=== PATIENT | male | born 1950 | race Caucasian/White ===

== ENCOUNTER 2017-04-12 08:39 | Day surgery (SDC) | payer MEDICARE ==
[~2017-04-12] VITALS: Ht 165.1 cm; Wt 82.6 kg
[~2017-04-12 08:39] MED LIST: ASPI325B; ASPI81CH PO; ATEN25; ATEN25 PO; CLOP75; COLE625 PO; CRUTCH2 USE; DOXY100T53 PO; EZET10 PO; FOLI1; GABA300 PO; HYDCHL25; LISI10 PO; LISI20 PO; LISI5 PO; METO100ER PO; METTREX2.5 PO; NITR.3SL SL; NITR.4SL SL; OMEPRAZOLE MAGN20 MG PO; OXYACE5T PO; PRED20 PO; Prilosec Otc20 MG PO; Prinivil10 MG PO; RANI150; RXOXYACE PO; [UNRECOGNIZED DRUG - REMARK]; [UNRECOGNIZED DRUG - REMARK]
[2017-11-28] MEDS ORDERED: GABA600 PO (20:48)
[2017-11-28] MEDS ORDERED: ATOR40TA PO (20:49)
[2017-11-29] MEDS ORDERED: LORA1 PO (12:37)
[2017-11-29] MEDS ORDERED: FOLI1 PO (12:37)
[2017-11-29] MEDS ORDERED: THIA100 PO (12:38)
== END 2017-04-12 12:26 | disposition home or self-care (01) ==
LOC: ORSCSDS 08:39
PROVIDERS: Urology
PROC: 0VB60ZZ Excision of Right Tunica Vaginalis, Open Approach (ICD-10-PCS; principal; 2017-04-12 11:00)
PROC: 0VB70ZZ Excision of Left Tunica Vaginalis, Open Approach (ICD-10-PCS; principal; 2017-04-12 11:00)
DX: N43.3 Hydrocele, unspecified (principal); I10 Essential (primary) hypertension; E78.5 Hyperlipidemia, unspecified; G47.33 Obstructive sleep apnea (adult) (pediatric); I25.2 Old myocardial infarction; Z79.82 Long term (current) use of aspirin; Z79.899 Other long term (current) drug therapy
CPT/HCPCS: J0690; J1100; J2250; J2405; J3010; J7120

== ENCOUNTER 2019-04-17 07:54 | Day surgery (SDC) | payer MEDICARE ==
[~2019-04-17] VITALS: Ht 162.6 cm; Wt 81.8 kg
[~2019-04-17 07:54] MED LIST changes: +ATOR40TA PO; +Aspirin EC81 MG PO; +ESCITALOPRAM OX10 MG PO; +FOLI1 PO; +GABA600 PO; +LORA1 PO; +Revatio20 MG PO; +THIA100 PO; +ZESTORETIC 20-251 EA PO
== END 2019-04-17 10:36 | disposition home or self-care (01) ==
LOC: ORSCSDS 07:54
PROVIDERS: Internal Medicine Gastroenterology
PROC: 0DBH8ZX Excision of Cecum, Via Natural or Artificial Opening Endoscopic, Diagnostic (ICD-10-PCS; principal; 2019-04-17 09:30)
PROC: 0DBL8ZX Excision of Transverse Colon, Via Natural or Artificial Opening Endoscopic, Diagnostic (ICD-10-PCS; principal; 2019-04-17 09:30)
PROC: 0DB78ZX Excision of Stomach, Pylorus, Via Natural or Artificial Opening Endoscopic, Diagnostic (ICD-10-PCS; principal; 2019-04-17 09:30)
PROC: 0DBN8ZX Excision of Sigmoid Colon, Via Natural or Artificial Opening Endoscopic, Diagnostic (ICD-10-PCS; principal; 2019-04-17 09:30)
PROC: 0DBM8ZX Excision of Descending Colon, Via Natural or Artificial Opening Endoscopic, Diagnostic (ICD-10-PCS; principal; 2019-04-17 09:30)
PROC: 0DBK8ZX Excision of Ascending Colon, Via Natural or Artificial Opening Endoscopic, Diagnostic (ICD-10-PCS; principal; 2019-04-17 09:30)
DX: R19.5 Other fecal abnormalities (principal); K29.70 Gastritis, unspecified, without bleeding; K31.7 Polyp of stomach and duodenum; B96.81 Helicobacter pylori [H. pylori] as the cause of diseases classified elsewhere; K44.9 Diaphragmatic hernia without obstruction or gangrene; D12.0 Benign neoplasm of cecum; D12.2 Benign neoplasm of ascending colon; D12.3 Benign neoplasm of transverse colon; K63.5 Polyp of colon; I10 Essential (primary) hypertension; I25.10 Atherosclerotic heart disease of native coronary artery without angina pectoris; I25.2 Old myocardial infarction; G47.33 Obstructive sleep apnea (adult) (pediatric); K21.9 Gastro-esophageal reflux disease without esophagitis; Z79.899 Other long term (current) drug therapy; Z79.82 Long term (current) use of aspirin
CPT/HCPCS: 88305; 88341; 88342; J2704; J7120

== ENCOUNTER → 2019-06-10 | Outpatient (CLI) | payer MEDICARE | END | disposition home or self-care (01) | LOC: LAB SHORT 23:00 → LAB 23:00 → LAB FUT 05-16 17:15 | DX: K29.60 Other gastritis without bleeding (principal) | CPT/HCPCS: 87338 ==

== ENCOUNTER 2020-07-18 12:18 | Emergency (ER) | payer MEDICARE ==
[~2020-07-18] VITALS: Ht 165.1 cm; Wt 82.5 kg
[2020-07-18 13:30] LABS: BASOPHILS ABSOLUTE AUTO 0.02 K/mm3 (0.00-0.23); BASOPHILS PERCENT AUTO 0 % (0-2); EOSINOPHILS PERCENT AUTO 0 % (0-6); Hematocrit 40.3 % (37.0-53.0); Hemoglobin 13.8 g/dL (13.5-17.5); IMMATURE GRAN ABSOLUTE AUTO 0.07 K/mm3 (0.00-0.10); IMMATURE GRAN PERCENT AUTO 1 % (0-1); LYMPHOCYTES ABSOLUTE AUTO 0.46 K/mm3 (0.84-5.20); LYMPHOCYTES PERCENT AUTO 4 % (21-46); MONOCYTES ABSOLUTE AUTO 0.52 K/mm3 (0.16-1.47); MONOCYTES PERCENT AUTO 5 % (4-13); Mean Corpuscular HGB 33.8 pg (26.0-34.0); Mean Corpuscular HGB Conc 34.2 g/dL (31.5-36.5); Mean Corpuscular Volume 99 fL (80-100); NEUTROPHILS ABSOLUTE AUTO 10.17 K/mm3 (1.96-9.15); NEUTROPHILS PERCENT AUTO 91 % (41-73); Platelet Count 140 K/mm3 (150-400); RDW Coefficient Variation 13.2 % (11.7-14.2); RDW Standard Deviation 47.6 fL (35.1-46.3); Red Blood Cell Count 4.08 M/mm3 (4.30-5.90); White Blood Cell Count 11.24 K/mm3 (4.00-11.30)
[2020-07-18 13:41] LABS: Alanine Aminotransfer (ALT/SGP 18 U/L (12-78); Albumin, Blood 3.4 g/dL (3.4-5.0); Albumin/Globulin Ratio 1.1 (0.8-1.8); Alk Phos 77 U/L (50-136); Anion Gap 4 mmol/L (6-16); Aspartate Aminotrans (AST/SGOT 17 U/L (12-37); Bilirubin, Total 0.8 mg/dL (0.1-1.0); Blood Urea Nitrogen 11 mg/dL (8-24); Bun/Creatinine Ratio 8.9 (12.0-20.0); CO2, Blood 29 mmol/L (21-32); Chloride, Blood 104 mmol/L (98-108); Creatinine, Blood 1.23 mg/dL (0.60-1.20); Globulin, Blood 3.1 g/dL (2.2-4.0); Glomerular Filtration Rate >60 (60-); Glucose, Blood 120 mg/dL (70-99); Potassium, Blood 3.5 mmol/L (3.5-5.5); Sodium, Blood 137 mmol/L (136-145); Total Protein, Blood 6.5 g/dL (6.4-8.2); Troponin I <0.015 ng/mL (0.000-0.040)
== END 2020-07-18 16:19 | disposition home or self-care (01) ==
LOC: ER 12:18
PROVIDERS: Emergency Medicine
DX: R55 Syncope and collapse (principal); R19.7 Diarrhea, unspecified; I10 Essential (primary) hypertension; E78.5 Hyperlipidemia, unspecified; F17.220 Nicotine dependence, chewing tobacco, uncomplicated; Z79.82 Long term (current) use of aspirin; Z79.899 Other long term (current) drug therapy
CPT/HCPCS: 71045; 74019; 80053; 83690; 84484; 85025; 93005; 93010; 99284-25

== ENCOUNTER 2021-02-08 09:51 | Observation (INO) | payer MEDICARE ==
[~2021-02-08] VITALS: Ht 165.1 cm; Wt 81.9 kg
[~2021-02-08 09:51] MED LIST changes: -Aspirin EC81 MG PO; -ESCITALOPRAM OX10 MG PO; -ZESTORETIC 20-251 EA PO
[2021-02-08 10:18] LABS: BASOPHILS ABSOLUTE AUTO 0.03 K/mm3 (0.00-0.23); BASOPHILS PERCENT AUTO 0 % (0-2); EOSINOPHILS ABSOLUTE AUTO 0.17 K/mm3 (0.00-0.68); EOSINOPHILS PERCENT AUTO 3 % (0-6); Hematocrit 42.6 % (37.0-53.0); Hemoglobin 14.6 g/dL (13.5-17.5); IMMATURE GRAN ABSOLUTE AUTO 0.02 K/mm3 (0.00-0.10); IMMATURE GRAN PERCENT AUTO 0 % (0-1); LYMPHOCYTES ABSOLUTE AUTO 1.94 K/mm3 (0.84-5.20); LYMPHOCYTES PERCENT AUTO 28 % (21-46); MONOCYTES ABSOLUTE AUTO 0.47 K/mm3 (0.16-1.47); MONOCYTES PERCENT AUTO 7 % (4-13); Mean Corpuscular HGB 33.9 pg (26.0-34.0); Mean Corpuscular HGB Conc 34.3 g/dL (31.5-36.5); Mean Corpuscular Volume 99 fL (80-100); Mean Platelet Volume 10.3 fL (9.1-12.4); NEUTROPHILS ABSOLUTE AUTO 4.27 K/mm3 (1.96-9.15); NEUTROPHILS PERCENT AUTO 62 % (41-73); Platelet Count 181 K/mm3 (150-400); RDW Coefficient Variation 13.1 % (11.7-14.2); RDW Standard Deviation 47.8 fL (35.1-46.3); Red Blood Cell Count 4.31 M/mm3 (4.30-5.90)
[2021-02-08 10:46] LABS: Alanine Aminotransfer (ALT/SGP 24 U/L (12-78); Albumin, Blood 3.6 g/dL (3.4-5.0); Alk Phos 82 U/L (50-136); Anion Gap 4 mmol/L (6-16); Aspartate Aminotrans (AST/SGOT 18 U/L (12-37); Bilirubin, Total 0.6 mg/dL (0.1-1.0); Blood Urea Nitrogen 17 mg/dL (8-24); CO2, Blood 30 mmol/L (21-32); Calcium, Blood 8.7 mg/dL (8.5-10.1); Chloride, Blood 105 mmol/L (98-108); Creatinine, Blood 1.21 mg/dL (0.60-1.20); Globulin, Blood 3.5 g/dL (2.2-4.0); Glomerular Filtration Rate 59 (60-); Glucose, Blood 102 mg/dL (70-99); Potassium, Blood 3.8 mmol/L (3.5-5.5); Sodium, Blood 139 mmol/L (136-145); Total Protein, Blood 7.1 g/dL (6.4-8.2); Troponin I <0.015 ng/mL (0.000-0.040)
[2021-02-08] MEDS ORDERED: ESCITALOPRAM OX10 MG PO (12:42)
[2021-02-08] MEDS ORDERED: Lisinopril-Hct1 EAC4 PO (12:42)
[2021-02-08] MEDS ORDERED: ATOR40TA PO (12:43)
[2021-02-08] MEDS ORDERED: OMEPRAZOLE MAGN20 M1 PO (12:43)
[2021-02-08] MEDS ORDERED: METHOTREXATE2.5 M6 PO (12:44)
[2021-02-08] MEDS ORDERED: NEURONTIN600 MG PO (12:44)
[2021-02-08] MEDS ORDERED: Aspirin EC81 MG PO (12:45)
[2021-02-08 12:58] LABS: SARS-Cov-2 (COVID-19) PCR, MMC NEGATIVE (NEGATIVE)
--- NOTE | 2021-02-08 17:10 | NUR ---
RECIEVED REPORT FROM CONCHITA CREWS RN AT 1704. PATIENT TO TRANSFER TO ROOM 302.
[2021-02-09 05:18] LABS: BASOPHILS ABSOLUTE AUTO 0.02 K/mm3 (0.00-0.23); BASOPHILS PERCENT AUTO 0 % (0-2); EOSINOPHILS ABSOLUTE AUTO 0.15 K/mm3 (0.00-0.68); EOSINOPHILS PERCENT AUTO 2 % (0-6); Hematocrit 40.2 % (37.0-53.0); Hemoglobin 13.4 g/dL (13.5-17.5); IMMATURE GRAN ABSOLUTE AUTO 0.02 K/mm3 (0.00-0.10); IMMATURE GRAN PERCENT AUTO 0 % (0-1); LYMPHOCYTES ABSOLUTE AUTO 1.97 K/mm3 (0.84-5.20); LYMPHOCYTES PERCENT AUTO 29 % (21-46); MONOCYTES ABSOLUTE AUTO 0.39 K/mm3 (0.16-1.47); MONOCYTES PERCENT AUTO 6 % (4-13); Mean Corpuscular HGB 33.2 pg (26.0-34.0); Mean Corpuscular HGB Conc 33.3 g/dL (31.5-36.5); Mean Corpuscular Volume 100 fL (80-100); NEUTROPHILS ABSOLUTE AUTO 4.19 K/mm3 (1.96-9.15); NEUTROPHILS PERCENT AUTO 62 % (41-73); Platelet Count 150 K/mm3 (150-400); RDW Standard Deviation 47.6 fL (35.1-46.3); Red Blood Cell Count 4.04 M/mm3 (4.30-5.90); White Blood Cell Count 6.74 K/mm3 (4.00-11.30)
[2021-02-09 06:02] LABS: Alanine Aminotransfer (ALT/SGP 22 U/L (12-78); Albumin, Blood 3.2 g/dL (3.4-5.0); Albumin/Globulin Ratio 1.1 (0.8-1.8); Alk Phos 70 U/L (50-136); Anion Gap 6 mmol/L (6-16); Aspartate Aminotrans (AST/SGOT 14 U/L (12-37); Bilirubin, Total 0.5 mg/dL (0.1-1.0); Blood Urea Nitrogen 17 mg/dL (8-24); Bun/Creatinine Ratio 14.3 (12.0-20.0); CO2, Blood 29 mmol/L (21-32); Calcium, Blood 8.5 mg/dL (8.5-10.1); Chloride, Blood 107 mmol/L (98-108); Creatinine, Blood 1.19 mg/dL (0.60-1.20); Globulin, Blood 2.9 g/dL (2.2-4.0); Glomerular Filtration Rate >60 (60-); Glucose, Blood 117 mg/dL (70-99); Potassium, Blood 3.8 mmol/L (3.5-5.5); Sodium, Blood 142 mmol/L (136-145); Total Protein, Blood 6.1 g/dL (6.4-8.2)
--- NOTE | 2021-02-09 16:11 | NUR ---
PATIENT WAS TAKEN DOWN TO THE CENTRAL PROCESSING TECHNICIAN AT 1550. HE WILL NOT BE RETURNING TO THIS FLOOR S/P PROCEEDURE.
--- NOTE | 2021-02-09 16:56 | NUR ---
FACE TO face report received from Teresita at this time. Pt is in the heart center, undergoing angiogram at this time.
--- NOTE | 2021-02-09 16:59 | NUR ---
FACE TO FACE REPORT GIVEN TO GRICELDA LIVE IN [facility], AT 8302.
--- NOTE | 2021-02-09 18:40 | NUR ---
Pt came from the heart center, TR band in plae over the right wrist. Distal pulse bounding, fingers are pink, warm and pt denies any pain/numbness or tingling. Cap refill is brink.
--- NOTE | 2021-02-09 18:53 | NUR ---
Right wrist site is still without bleeding, bruising, swelling nor signs of hematoma. TR band still in place. Pt denies any discomfort. He is alert and oriented, but states that he still feels a little "goofy" after the medications.
--- NOTE | 2021-02-09 22:33 | NUR ---
CARE ASSUMPTION PT A&OX4. SP02>92% ON RA. TELEMETRY READS NSR, HR 70'S. PT HAS R RADIAL SITE. TR BAND FULLY INFLATED UPON CARE ASSUMPTION. NO BRUISING/BLEEDING/HEMATOMA. SITE SOFT, PULSES PALPABLE. ARM BOARD IN PLACE. FLUIDS INFUSING PER EMAR. CALL LIGHT IN REACH.
--- NOTE | 2021-02-10 02:39 | NUR ---
TR BAND OFF AT THIS TIME. NO BRUISING BLEEDING NO HEMATOMA. OPSITE PLACED. ARM BOARD IN PLACE AT THIS TIME.
[2021-02-10 04:40] LABS: BASOPHILS ABSOLUTE AUTO 0.03 K/mm3 (0.00-0.23); BASOPHILS PERCENT AUTO 0 % (0-2); EOSINOPHILS ABSOLUTE AUTO 0.17 K/mm3 (0.00-0.68); EOSINOPHILS PERCENT AUTO 2 % (0-6); Hemoglobin 12.7 g/dL (13.5-17.5); IMMATURE GRAN ABSOLUTE AUTO 0.02 K/mm3 (0.00-0.10); IMMATURE GRAN PERCENT AUTO 0 % (0-1); LYMPHOCYTES ABSOLUTE AUTO 1.77 K/mm3 (0.84-5.20); LYMPHOCYTES PERCENT AUTO 24 % (21-46); MONOCYTES PERCENT AUTO 7 % (4-13); Mean Corpuscular HGB 33.6 pg (26.0-34.0); Mean Corpuscular HGB Conc 34.3 g/dL (31.5-36.5); Mean Corpuscular Volume 98 fL (80-100); NEUTROPHILS ABSOLUTE AUTO 5.02 K/mm3 (1.96-9.15); NEUTROPHILS PERCENT AUTO 67 % (41-73); Platelet Count 135 K/mm3 (150-400); RDW Coefficient Variation 12.9 % (11.7-14.2); Red Blood Cell Count 3.78 M/mm3 (4.30-5.90); White Blood Cell Count 7.51 K/mm3 (4.00-11.30)
[2021-02-10 05:14] LABS: Bun/Creatinine Ratio 13.5 (12.0-20.0); Calcium, Blood 8.5 mg/dL (8.5-10.1); Creatinine, Blood 1.26 mg/dL (0.60-1.20); Potassium, Blood 3.6 mmol/L (3.5-5.5)
--- NOTE | 2021-02-10 05:32 | NUR ---
SHIFT SUMMARY PT A&OX4. PLEASANT. SP02>92% ON RA. TELEMETRY READS NSR, HR 70'S. PT DENIES CP/PRESSURE. PT HAS R RADIAL SITE. TR BAND DEFLATED AND REMOVED THIS SHIFT. SITE SOFT, NO BRUISING, NO BLEEDING, NO HEMATOMA. ARM BOARD IN PLACE. PT USED URINAL AT BEDSIDE. NS INFUSED PER EMAR. CALL LIGHT IN REACH.
[2021-02-10 09:56] LABS: CHOL/HDL RATIO 2.5; Cholesterol 144 mg/dL (50-200); HDL Cholesterol 58 mg/dL (>39); Low Density Lipoprotein Chol 56 mg/dL (0-110); Triglycerides 148 mg/dL (30-160); Very Low Density Lipoprot Chol 29 mg/dL (6-32)
--- NOTE | 2021-02-10 11:01 | NUR ---
02/09/21 discharge delayed due to use of restraints. There is a 48 hour waiting period. Patient will more than likely discharge on 02/11/21 to [facility].
[2021-02-10] MEDS ORDERED: Isosorbide Mono30 MG PO (11:10)
[2021-02-10] MEDS ORDERED: Nicoderm Cq1 EACH TOP (11:11)
[2021-02-10] MEDS ORDERED: METO25ER PO (11:11)
[2021-02-10] MEDS ORDERED: Nitrostat0.3 MG SL (11:12)
--- NOTE | 2021-02-11 07:56 | NUR ---
Per Dr. Wise discharge appropriate (discharged on 02/10/21). Spoke with . Cyril Yanes and he is aware of discharge and does not oppose. Patient has his own transportation and is driving home to his residence. Patient is ambulatory with no DME needs at this time. Patient has a scheduled follow up appointment with Dr. Hwoell on 02/15/21 at 1520 and nurse will schedule his cardiology follow up with Dr. Hastings. Patient states he has a good support network of family and friends. No barriers to discharge at this time.
== END 2021-02-10 12:45 | disposition home or self-care (01) ==
LOC: ER 09:51 → MEDS 09:52 → ERHOLD 09:52 → MEDS 17:20 → PCU 02-09 16:42
PROVIDERS: Emergency Medicine; Internal Medicine Cardiovascular Disease; ADMIT Family Medicine
DX: I25.110 Atherosclerotic heart disease of native coronary artery with unstable angina pectoris (principal); I10 Essential (primary) hypertension; E78.5 Hyperlipidemia, unspecified; G47.33 Obstructive sleep apnea (adult) (pediatric); K21.9 Gastro-esophageal reflux disease without esophagitis; F17.220 Nicotine dependence, chewing tobacco, uncomplicated; E66.9 Obesity, unspecified; M06.9 Rheumatoid arthritis, unspecified; G11.9 Hereditary ataxia, unspecified; G60.9 Hereditary and idiopathic neuropathy, unspecified; N52.9 Male erectile dysfunction, unspecified; Z95.5 Presence of coronary angioplasty implant and graft; Z79.82 Long term (current) use of aspirin; Z20.822 Contact with and (suspected) exposure to COVID-19
CPT/HCPCS: 36415; 71046; 72040; 76937; 80048; 80053; 80061; 83690; 83880; 84484; 85025; 85347; 90686; 92978; 93005; 93010; 93306; 93458; 93571; 96372; 99152; 99153; 99285-25; A9270; C1753; C1769; C1887; C1894; G0378; J1644; J1650; J2250; J3010; J7030; J7050; Q9967; U0004

== ENCOUNTER → 2021-07-25 | Outpatient (CLI) | payer MEDICARE ==
[~2021-07-25] MED LIST changes: +Aspirin EC81 MG PO; +ESCITALOPRAM OX10 MG PO; +Isosorbide Mono30 MG PO; +Lisinopril-Hct1 EAC4 PO; +METHOTREXATE2.5 M6 PO; +METO25ER PO; +NEURONTIN600 MG PO; +Nicoderm Cq1 EACH TOP; +Nitrostat0.3 MG SL; +OMEPRAZOLE MAGN20 M1 PO
[2021-08-01 16:08] LABS: BORDETELLA PARAPERTUSSIS DNA Negative (Negative); BORDETELLA PERTUSSIS DNA Negative (Negative)
== END | disposition home or self-care (01) ==
LOC: LAB 13:28 → LAB SHORT 13:28
PROVIDERS: Nurse Practitioner Family
DX: R05.3 Chronic cough (principal); R06.00 Dyspnea, unspecified
CPT/HCPCS: 87798

== ENCOUNTER 2021-08-17 21:17 | Emergency (ER) | payer MEDICARE ==
[~2021-08-17] VITALS: Ht 165.1 cm; Wt 86.2 kg
[2021-08-17 21:58] LABS: BASOPHILS ABSOLUTE AUTO 0.02 K/mm3 (0.00-0.23); BASOPHILS PERCENT AUTO 1 % (0-2); EOSINOPHILS ABSOLUTE AUTO 0.04 K/mm3 (0.00-0.68); EOSINOPHILS PERCENT AUTO 1 % (0-6); Hematocrit 41.5 % (37.0-53.0); Hemoglobin 14.1 g/dL (13.5-17.5); IMMATURE GRAN ABSOLUTE AUTO 0.02 K/mm3 (0.00-0.10); IMMATURE GRAN PERCENT AUTO 1 % (0-1); LYMPHOCYTES ABSOLUTE AUTO 0.52 K/mm3 (0.84-5.20); LYMPHOCYTES PERCENT AUTO 12 % (21-46); MONOCYTES ABSOLUTE AUTO 0.46 K/mm3 (0.16-1.47); MONOCYTES PERCENT AUTO 11 % (4-13); Mean Corpuscular HGB 34.1 pg (26.0-34.0); Mean Corpuscular Volume 101 fL (80-100); Mean Platelet Volume 9.7 fL (9.1-12.4); NEUTROPHILS ABSOLUTE AUTO 3.17 K/mm3 (1.96-9.15); NEUTROPHILS PERCENT AUTO 75 % (41-73); Platelet Count 127 K/mm3 (150-400); RDW Coefficient Variation 13.3 % (11.7-14.2); RDW Standard Deviation 49.7 fL (35.1-46.3); Red Blood Cell Count 4.13 M/mm3 (4.30-5.90); White Blood Cell Count 4.23 K/mm3 (4.00-11.30)
[2021-08-17 22:10] LABS: Albumin, Blood 3.5 g/dL (3.4-5.0); Albumin/Globulin Ratio 1.1 (0.8-1.8); Bilirubin, Total 0.7 mg/dL (0.1-1.0); Bun/Creatinine Ratio 12.4 (12.0-20.0); Calcium, Blood 8.2 mg/dL (8.5-10.1); Creatinine, Blood 1.13 mg/dL (0.60-1.20); Globulin, Blood 3.2 g/dL (2.2-4.0); Potassium, Blood 3.6 mmol/L (3.5-5.5); Total Protein, Blood 6.7 g/dL (6.4-8.2)
[2021-08-17 23:12] LABS: Influenza A, PCR NEGATIVE (NEGATIVE); Influenza B, PCR NEGATIVE (NEGATIVE); Resp Syncytial Virus, PCR NEGATIVE (NEGATIVE)
[2021-08-17 23:15] LABS: SARS-Cov-2 (COVID-19) PCR, MMC POSITIVE (NEGATIVE)
[2021-08-17 23:59] LABS: Source, Urine Clean Catch
[2021-08-18 00:02] LABS: Bilirubin, Urine Neg (Neg); Blood, Urine Neg (Neg); Glucose Qualitative, Urine Neg (Neg); Ketones, Urine Neg (Neg); Leukocyte Esterase, Urine Neg (Neg); Nitrite, Urine Neg (Neg); Protein, Urine 1+ (Neg); Specific Gravity, Urine 1.015 (1.003-1.022); Urobilinogen, Urine 2+ (Normal)
[2021-08-18 00:14] LABS: Appearance, Urine Clear (Clear); Color, Urine Yellow (P-Yellow)
== END 2021-08-17 23:59 | disposition home or self-care (01) ==
LOC: ER 21:17
PROVIDERS: Student in an Organized Health Care Education/Training Program
DX: U07.1 COVID-19 (principal); I25.10 Atherosclerotic heart disease of native coronary artery without angina pectoris; G47.33 Obstructive sleep apnea (adult) (pediatric); I10 Essential (primary) hypertension; E78.5 Hyperlipidemia, unspecified; K21.9 Gastro-esophageal reflux disease without esophagitis; I25.2 Old myocardial infarction; Z95.5 Presence of coronary angioplasty implant and graft; F17.220 Nicotine dependence, chewing tobacco, uncomplicated; Z79.82 Long term (current) use of aspirin; Z79.899 Other long term (current) drug therapy
CPT/HCPCS: 0241U; 36415; 71045; 80053; 83605; 83880; 84484; 85025; 93005; 93010; 99284-25; J7030

== ENCOUNTER 2023-02-20 16:58 | Emergency (ER) | payer OTHER ==
[~2023-02-20] VITALS: Ht 165.1 cm; Wt 82.5 kg
[~2023-02-20 16:58] MED LIST changes: +DULOXETINE HCL60 M1 PO
[2023-02-20 17:36] LABS: BASOPHILS ABSOLUTE AUTO 0.03 K/mm3 (0.00-0.23); BASOPHILS PERCENT AUTO 0 % (0-2); EOSINOPHILS PERCENT AUTO 1 % (0-6); Hematocrit 44.8 % (37.0-53.0); Hemoglobin 14.7 g/dL (13.5-17.5); IMMATURE GRAN ABSOLUTE AUTO 0.03 K/mm3 (0.00-0.10); IMMATURE GRAN PERCENT AUTO 0 % (0-1); LYMPHOCYTES ABSOLUTE AUTO 1.77 K/mm3 (0.84-5.20); LYMPHOCYTES PERCENT AUTO 22 % (21-46); MONOCYTES ABSOLUTE AUTO 0.39 K/mm3 (0.16-1.47); MONOCYTES PERCENT AUTO 5 % (4-13); Mean Corpuscular HGB 31.8 pg (26.0-34.0); Mean Corpuscular HGB Conc 32.8 g/dL (31.5-36.5); Mean Corpuscular Volume 97 fL (80-100); Mean Platelet Volume 9.4 fL (9.1-12.4); NEUTROPHILS ABSOLUTE AUTO 5.77 K/mm3 (1.96-9.15); NEUTROPHILS PERCENT AUTO 71 % (41-73); Platelet Count 141 K/mm3 (150-400); RDW Coefficient Variation 12.9 % (11.7-14.2); RDW Standard Deviation 45.9 fL (35.1-46.3); Red Blood Cell Count 4.62 M/mm3 (4.30-5.90); White Blood Cell Count 8.09 K/mm3 (4.00-11.30)
[2023-02-20 18:03] LABS: Albumin, Blood 3.8 g/dL (3.4-5.0); Albumin/Globulin Ratio 1.1 (0.8-1.8); Bilirubin, Total 0.5 mg/dL (0.1-1.0); Bun/Creatinine Ratio 14.4 (12.0-20.0); Calcium, Blood 8.4 mg/dL (8.5-10.1); Creatinine, Blood 1.04 mg/dL (0.60-1.20); Globulin, Blood 3.4 g/dL (2.2-4.0); Potassium, Blood 3.9 mmol/L (3.5-5.5); Total Protein, Blood 7.2 g/dL (6.4-8.2)
[2023-02-20] MEDS ORDERED: LOSA50 PO (22:28)
[2023-02-20] MEDS ORDERED: EZETIMIBE10 M6 PO (22:29)
[2023-02-20] MEDS ORDERED: ALMACONE SUSPE355 ML PO (23:41)
[2023-02-20 23:45] VITALS: BP 155/98
== END 2023-02-20 23:55 | disposition home or self-care (01) ==
LOC: ER 16:58
PROVIDERS: Physician Assistant
DX: K21.9 Gastro-esophageal reflux disease without esophagitis (principal); I25.2 Old myocardial infarction; I25.10 Atherosclerotic heart disease of native coronary artery without angina pectoris; I10 Essential (primary) hypertension; E78.5 Hyperlipidemia, unspecified; M06.9 Rheumatoid arthritis, unspecified; F17.220 Nicotine dependence, chewing tobacco, uncomplicated; Z79.84 Long term (current) use of oral hypoglycemic drugs; Z79.82 Long term (current) use of aspirin; Z79.899 Other long term (current) drug therapy
CPT/HCPCS: 71046; 80053; 83880; 84484; 85025; 93005; 93010; 99285-25

== ENCOUNTER → 2023-03-13 | Outpatient (CLI) | payer OTHER ==
[~2023-03-13] MED LIST changes: +ALMACONE SUSPE355 ML PO; +EZETIMIBE10 M6 PO; +LOSA50 PO
[2023-03-13 14:55] LABS: Bun/Creatinine Ratio 8.1 (12.0-20.0); Calcium, Blood 8.8 mg/dL (8.5-10.1); Creatinine, Blood 1.24 mg/dL (0.60-1.20)
== END | disposition home or self-care (01) ==
LOC: LAB SHORT 14:43 → LAB 14:43
PROVIDERS: Physician Assistant Medical
DX: R07.81 Pleurodynia (principal)
CPT/HCPCS: 80048; 85379

== ENCOUNTER 2023-12-27 13:49 | Day surgery (SDC) | payer OTHER ==
[~2023-12-27] VITALS: Ht 152.4 cm; Wt 84.3 kg
[~2023-12-27 13:49] MED LIST changes: +ALBU90OI; +Atropine Sulfate 0.1 MG/ML 10ML SYR ONE; +BENZ100A PO; +Glycopyrrolate 0.2 MG/ML 1MLVIAL ONE; +Lactated Ringer's 1,000 ML IV ONE; +Lidocaine 2% 5 ML SDV ONE; +Lidocaine HCl/Pf 1% 5 ML VIAL ONE; +NITR.4SL; +Ondansetron HCl 2 MG / ML 2ML Vial ONE; +ePHEDrine Sulfate 50 MG/ML 1ML Injection ONE; +propofoL 50 ML IV ONE
[2023-12-27] MEDS ORDERED: PRAV20 (14:13)
[2023-12-27] MEDS ORDERED: Lactated Ringer's 1,000 ML IV ONE (14:51)
[2023-12-27 16:03] VITALS: BP 138/78
== END 2023-12-27 16:03 | disposition home or self-care (01) ==
LOC: ORSCSDS 13:49
PROVIDERS: Specialist
PROC: 0DJD8ZZ Inspection of Lower Intestinal Tract, Via Natural or Artificial Opening Endoscopic (ICD-10-PCS; principal; 2023-12-27 15:15)
DX: K64.8 Other hemorrhoids (principal); Z86.0100 Personal history of colon polyps, unspecified; K57.30 Diverticulosis of large intestine without perforation or abscess without bleeding; G47.33 Obstructive sleep apnea (adult) (pediatric); I10 Essential (primary) hypertension; I25.2 Old myocardial infarction; Z79.899 Other long term (current) drug therapy
CPT/HCPCS: J0461; J2001; J2003; J2405; J2704; J7120

== ENCOUNTER 2024-03-02 11:37 | Observation (INO) | payer OTHER ==
[~2024-03-02] VITALS: Ht 175.3 cm; Wt 95.2 kg
[~2024-03-02 11:37] MED LIST changes: -Atropine Sulfate 0.1 MG/ML 10ML SYR ONE; -Glycopyrrolate 0.2 MG/ML 1MLVIAL ONE; -Lactated Ringer's 1,000 ML IV ONE; -Lidocaine 2% 5 ML SDV ONE; -Lidocaine HCl/Pf 1% 5 ML VIAL ONE; -Ondansetron HCl 2 MG / ML 2ML Vial ONE; +PRAV20 PO; -ePHEDrine Sulfate 50 MG/ML 1ML Injection ONE; -propofoL 50 ML IV ONE
[2024-03-02 12:09] LABS: BASOPHILS ABSOLUTE AUTO 0.05 K/mm3 (0.00-0.23); BASOPHILS PERCENT AUTO 1 % (0-2); EOSINOPHILS ABSOLUTE AUTO 0.18 K/mm3 (0.00-0.68); EOSINOPHILS PERCENT AUTO 2 % (0-6); Hematocrit 44.2 % (37.0-53.0); Hemoglobin 15.3 g/dL (13.5-17.5); IMMATURE GRAN ABSOLUTE AUTO 0.05 K/mm3 (0.00-0.10); IMMATURE GRAN PERCENT AUTO 1 % (0-1); LYMPHOCYTES ABSOLUTE AUTO 2.74 K/mm3 (0.84-5.20); LYMPHOCYTES PERCENT AUTO 30 % (21-46); MONOCYTES ABSOLUTE AUTO 0.56 K/mm3 (0.16-1.47); MONOCYTES PERCENT AUTO 6 % (4-13); Mean Corpuscular HGB 32.3 pg (26.0-34.0); Mean Corpuscular HGB Conc 34.6 g/dL (31.5-36.5); Mean Corpuscular Volume 93 fL (80-100); NEUTROPHILS ABSOLUTE AUTO 5.47 K/mm3 (1.96-9.15); NEUTROPHILS PERCENT AUTO 60 % (41-73); RDW Coefficient Variation 12.7 % (11.7-14.2); RDW Standard Deviation 43.3 fL (35.1-46.3); Red Blood Cell Count 4.73 M/mm3 (4.30-5.90); White Blood Cell Count 9.05 K/mm3 (4.00-11.30)
[2024-03-02 12:16] LABS: Albumin, Blood 3.1 g/dL (3.4-5.0); Albumin/Globulin Ratio 0.9 (0.8-1.8); Bilirubin, Total 0.6 mg/dL (0.1-1.0); Calcium, Blood 8.5 mg/dL (8.5-10.1); Creatinine, Blood 1.37 mg/dL (0.60-1.20); Globulin, Blood 3.3 g/dL (2.2-4.0); Potassium, Blood 4.8 mmol/L (3.5-5.5); Total Protein, Blood 6.4 g/dL (6.4-8.2)
[2024-03-02 12:18] LABS: Mean Platelet Volume 10.5 fL (9.1-12.4); Platelet Count 141 K/mm3 (150-400)
[2024-03-02] MEDS ORDERED: FLU VACC TS2024-25(6MOS UP)/PF 45 MCG/0.5 ML SYRINGE IM ONE (14:15)
[2024-03-02 16:10] VITALS: BP 127/83
[2024-03-02] MEDS ORDERED: Albuterol 2.5 MG/3 ML VIAL INH PRN (16:30)
[2024-03-02 17:13] VITALS: BP 136/88
[2024-03-02 17:15] VITALS: BP 135/87
[2024-03-02 17:17] VITALS: BP 128/88
[2024-03-02 19:21] VITALS: BP 125/81
--- NOTE | 2024-03-02 19:33 | NUR ---
SHIFT SUMMARY- PT ADMITTED THROUGH THE ED. ADMISSION COMPLETED, PT STATES HE USES A C PAP AT HOME. CALLED DR WILSON AND GOT THAT ORDER. C-PAP AT THE BEDSIDE FOR TONIGHT. PLACED PT ON CONT BIOX. PT INSTRUCTED TO USE THE CALL LIGHT IF HE NEEDS TO GET OOB. TELE IN PLACE SINUS IN THE 60'S. PT SPOUSE BROUGHT HIS HOME MEDS IN AND THEY WERE USED TO RECONCILE THE HOME MEDICATIONS. THOSE MEDS WERE PLACED IN THE LOCKED DRAWER FOR THE SPOUSE TO TAKE HOME TOMORROW. PT IN BED AT THE TIME OF BEDSIDE REPORT, CALL LIGHT IN REACH NO S&S OF DISTRESS NOTED.
[2024-03-02] MEDS ORDERED: Gabapentin 300 MG Cap PO SCH (21:00)
[2024-03-03 01:14] VITALS: BP 116/76
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
[2024-03-03 05:21] LABS: BASOPHILS ABSOLUTE AUTO 0.03 K/mm3 (0.00-0.23); BASOPHILS PERCENT AUTO 0 % (0-2); EOSINOPHILS ABSOLUTE AUTO 0.23 K/mm3 (0.00-0.68); EOSINOPHILS PERCENT AUTO 2 % (0-6); Hematocrit 41.2 % (37.0-53.0); Hemoglobin 13.9 g/dL (13.5-17.5); IMMATURE GRAN ABSOLUTE AUTO 0.02 K/mm3 (0.00-0.10); IMMATURE GRAN PERCENT AUTO 0 % (0-1); LYMPHOCYTES ABSOLUTE AUTO 2.59 K/mm3 (0.84-5.20); LYMPHOCYTES PERCENT AUTO 27 % (21-46); MONOCYTES ABSOLUTE AUTO 0.65 K/mm3 (0.16-1.47); MONOCYTES PERCENT AUTO 7 % (4-13); Mean Corpuscular HGB 31.8 pg (26.0-34.0); Mean Corpuscular HGB Conc 33.7 g/dL (31.5-36.5); Mean Corpuscular Volume 94 fL (80-100); Mean Platelet Volume 10.2 fL (9.1-12.4); NEUTROPHILS PERCENT AUTO 63 % (41-73); Platelet Count 168 K/mm3 (150-400); RDW Coefficient Variation 12.7 % (11.7-14.2); Red Blood Cell Count 4.37 M/mm3 (4.30-5.90); White Blood Cell Count 9.52 K/mm3 (4.00-11.30)
[2024-03-03] MEDS ORDERED: Omeprazole 20 MG CapCR PO SCH (06:00)
[2024-03-03 06:05] LABS: Albumin, Blood 3.2 g/dL (3.4-5.0); Albumin/Globulin Ratio 1.1 (0.8-1.8); Bilirubin, Total 0.7 mg/dL (0.1-1.0); Bun/Creatinine Ratio 13.3 (12.0-20.0); Calcium, Blood 8.4 mg/dL (8.5-10.1); Creatinine, Blood 1.2 mg/dL (0.60-1.20); Potassium, Blood 3.7 mmol/L (3.5-5.5); Total Protein, Blood 6.2 g/dL (6.4-8.2)
[2024-03-03 07:20] VITALS: BP 116/76
[2024-03-03] MEDS ORDERED: Aspirin 81 MG Chew PO SCH (09:00)
[2024-03-03] MEDS ORDERED: DULoxetine HCL 60 MG Capsule DR PO SCH (09:00)
[2024-03-03] MEDS ORDERED: Losartan Potassium 50 MG Tab PO SCH (09:00)
[2024-03-03] MEDS ORDERED: Gabapentin 300 MG Cap PO SCH (09:00)
[2024-03-03] MEDS ORDERED: Metoprolol Succinate 25 MG TABCR PO SCH (09:00)
[2024-03-03] MEDS ORDERED: Enoxaparin 40 MG/0.4 ML SYR SC SCH (09:00)
[2024-03-03] MEDS ORDERED: Pravastatin Sodium 20 MG Tab PO SCH (09:00)
[2024-03-03 11:03] VITALS: BP 133/84
[2024-03-03 11:05] VITALS: BP 115/86
[2024-03-03 11:07] VITALS: BP 134/98
--- NOTE | 2024-03-03 11:10 | NUR ---
NOTE: PT C/O MONTERO BEHIND R EYE, STATES "I FEEL SIMILAR TO YESTERDAY". DR. KRISHNA CONTACTED AND HE SAID HE WOULD PUT IN NEW ORDERS. ORTHOS OBTAINED AND DR. KRISHNA NOTIFIED OF THEIR PRESENCE IN THE CHART.
[2024-03-03] MEDS ORDERED: Acetaminophen 325 MG TABLET PO ONE (12:00)
[2024-03-03] MEDS ORDERED: GABA400 PO (12:48)
--- NOTE | 2024-03-03 13:33 | NUR ---
DISCHARGE NOTE PT DISCHARGED TO HOME, PICKED UP BY HIS . IV REMOVED, TELE RETURNED. ZIO PATCH PLACED AND PT EDUCATED ON MAINTENANCE. DISCHARGE INFORMATION AND EDUCATION PROVIDED. PERSONAL MEDICATIONS RETURNED.
[2024-03-03] MEDS ORDERED: Acetaminophen 325 MG TABLET PO PRN (16:00)
== END 2024-03-03 13:32 | disposition home or self-care (01) ==
LOC: ER 11:37 → MEDS 11:38
PROVIDERS: Emergency Medicine; ADMIT Hospitalist
DX: R55 Syncope and collapse (principal); I25.2 Old myocardial infarction; I25.10 Atherosclerotic heart disease of native coronary artery without angina pectoris; E78.5 Hyperlipidemia, unspecified; I10 Essential (primary) hypertension; K21.9 Gastro-esophageal reflux disease without esophagitis; F17.200 Nicotine dependence, unspecified, uncomplicated; G47.33 Obstructive sleep apnea (adult) (pediatric); Z79.82 Long term (current) use of aspirin; Z79.899 Other long term (current) drug therapy; Z95.5 Presence of coronary angioplasty implant and graft
CPT/HCPCS: 36415; 70450; 80053; 84443; 84484; 85025; 93005; 93010; 93246; 93306; 94660; 94762; 96372; 99285-25; A9270; G0378; J1650